=== PATIENT | male | born 1960 ===

== ENCOUNTER 2016-10-11 22:44 | Emergency (ER) | payer BC ==
[~2016-10-11] VITALS: Ht 180.3 cm; Wt 81.9 kg
[2016-10-11 22:47] VITALS: TEMP 36.5; Ht 180.3 cm; Wt 81.9 kg
[2016-10-11] MEDS ORDERED: XYLOCAINE 1%/SOD BICARB 20 ML VIAL INFIL ONE (23:45)
[2016-10-12 00:30] VITALS: BP 132/88; PULSE 86; O2SAT 96
[2016-10-12] MEDS ORDERED: CEPHALEXIN 500MG HOME PACK 1 EA BTL PO ONE (00:45)
[2016-10-12] MEDS ORDERED: CEPH500C PO (00:46)
--- NOTE | 2016-10-12 05:49 | EMERGENCY ROOM VISIT NOTE ---
ED Visit Note First contact with patient: 23:22 CHIEF COMPLAINT: Hand laceration HISTORY OF PRESENT ILLNESS: This 55-year-old male patient presents to the emergency department after cutting the left hand a few hours ago. The patient was helping his son move a refrigerator out from his apartment. The refrigerator ultimately struck into the back of the patient's left hand, causing the laceration. The bleeding stopped after several hours. Denies weakness or numbness of the hand or fingers. The patient rates the pain as dull and 7/10. The patient denies any other injuries. The patient's Tetanus shot is reportedly up to date. REVIEW OF SYSTEMS: A 6 system review of systems was completed with positives and pertinent negatives listed in the HPI. ALLERGIES: No known allergies MEDICATIONS: No chronic medications PMH: Otherwise healthy SOCIAL HISTORY: Lives with family PHYSICAL EXAM: Vital Signs: Reviewed Nurse's notes, vital signs stable. GENERAL : Male, in no acute distress, well-developed, well-nourished. SKIN: There is a J-shaped 5.5 cm long laceration on the dorsal aspect of the left hand. The edges gape apart with traction. There is no foreign material in the wound and it looks clean. There is minimal bleeding. There appears to be a small knick to the extensor tendon of the left third digit. No significant blood vessels were injured. Normal strength and movement of the fingers and wrist. Capillary refill less than 2 seconds. Normal sensation to light and sharp touch. EMERGENCY DEPARTMENT COURSE: I examined the patient. Verbal consent was obtained to perform the procedure. Using sterile technique the wound was cleansed with Betadine. The area was sterilely draped. 7 ml of 1% buffered lidocaine was used to anesthetize the laceration on the hand. Once the patient was anesthetized, the wound was copiously irrigated under pressure with sterile saline. The wound was explored and was as described above. The laceration was repaired using 8 simple interrupted 5-0 nylon sutures with the wound edges being well approximated. The patient tolerated the procedure well. Hemostasis was achieved. The area was cleaned with sterile saline and dressed with bacitracin ointment and bandage. The patient will need to follow with orthopedics for the small tendon laceration. He will be placed on Keflex with his first dose being provided here. He was otherwise invited to the ER with any new, worsening, or concerning symptoms. Current/Historical Medications Scheduled Cephalexin Monohydrate (Keflex), 500 MG PO TID Allergies Coded Allergies: No Known Allergies (Unverified , 10/11/16) Vital Signs Date Time Temp Pulse Resp B/P Pulse Ox O2 Delivery O2 Flow Rate FiO2 10/12/16 00:30 86 20 132/88 96 Room Air 10/11/16 22:47 36.5 77 18 136/98 95 Room Air Medications Administered Medications (Trade) Dose Ordered Sig/Varun Route Start Time Stop Time Status Last Admin Dose Admin Cephalexin Monohydrate (Keflex 500MG Home Pack) 1 homepack NOW ONCE PO 10/12/16 00:45 10/12/16 00:46 DC 10/12/16 00:42 1 HOMEPACK Departure Information Impression Primary Impression: Hand laceration involving tendon Dispostion Home / Self-Care Condition GOOD Prescriptions Cephalexin Monohydrate (Keflex) 500 Mg Cap 500 MG PO TID for 7 Days, #21 CAP Prov: Kevin Turpin PA-C 10/12/16 Referrals Sean Michel MD Forms HOME CARE DOCUMENTATION FORM, IMPORTANT VISIT INFORMATION Patient Instructions My [facility] Additional Instructions You were seen and evaluated today on an emergency basis only. This is not a substitute for, or an effort to provide, complete comprehensive medical care. It is not possible to recognize and treat all injuries or illnesses in a single emergency department visit. For this reason it is recommended that you followup with [facility], Dr. Michel's office, for ongoing care and evaluation. Keep wound clean and dry. Do not allow any crusting or dried blood to accumulate on sutures. If this occurs, use a mild soap/water on a Q-tip to clean the wound. Do not use Peroxide to clean the wound as this can delay healing Use an antibiotic ointment like Bacitracin for 3-4 days, then let wound dry. You may bathe and shower as normal, but DO NOT SOAK the wound. Suture removal in about 10 days with Orthopedics, your Family Doctor, or in the ER. Return sooner for any signs of infection, increasing redness, swelling, or drainage. Cephalexin(Keflex) 500mg: Take one pill 3 times daily for 7 days for to prevent skin infection. All antibiotics can cause diarrhea. If this occurs and you feel worse or it does not resolve in 1-2 days follow up with your doctor or return to the Emergency Department as this could be signs of serious underlying problems. Any medication can cause an allergic reaction, stop the pills immediately and return to the ER for rash, hives, breathing difficulties, or swelling. You are welcome to return to the emergency department anytime with new, worsening, or concerning symptoms.
== END 2016-10-12 00:55 | disposition home or self-care (01) ==
LOC: C.EDB 22:46 → C.EDC 10-12 00:55
DX: S66.309A Unspecified injury of extensor muscle, fascia and tendon of unspecified finger at wrist and hand level, initial encounter (principal); W22.8XXA Striking against or struck by other objects, initial encounter; Y92.039 Unspecified place in apartment as the place of occurrence of the external cause